=== PATIENT | female | born 1980 | race Caucasian/White ===

== ENCOUNTER 2021-04-04 12:20 | Inpatient (IN) | payer MEDICAID ==
[~2021-04-04] VITALS: Ht 162.6 cm; Wt 89.5 kg
--- NOTE | 2021-04-04 13:35 | NUR ---
CHARGE NURSE MADE AWARE OF PENDING ADMIT TO MOVE PT TO MAIN ER.
[2021-04-04] MEDS ORDERED: piperacillin/tazo 3.375gm/50ml 50 ML IV ONE (13:40)
[2021-04-04] MEDS ORDERED: normal saline 1000ML IV soln IV ONE (13:40)
[2021-04-04] MEDS ORDERED: vancomycin/NS 1 GM ADD-VANTAGE 250 ML IV ONE (13:40)
--- NOTE | 2021-04-04 14:13 | NUR ---
pt is resting quietly on gurney, resp even and unlabored, 1st liter NS infusing w/o, family at bedside
[2021-04-04 14:20] LABS: BASOPHILS # (AUTO) 0.1 X10'3 (0-0.2); BASOPHILS % (AUTO) 0.9 % (0-1); EOSINOPHILS # (AUTO) 0.3 X10'3 (0-0.9); EOSINOPHILS % (AUTO) 3.7 % (0-6); HEMATOCRIT 35.9 % (35.0-45.0); HEMOGLOBIN 11.9 g/dl (12.0-16.0); LYMPHOCYTES # (AUTO) 2.2 X10'3 (1.1-4.8); LYMPHOCYTES % (AUTO) 27.1 % (21-51); MEAN CORPUSCULAR HEMOGLOBIN 29.6 PG (27.0-31.0); MEAN CORPUSCULAR HGB CONC 33.3 g/dL (33.0-36.5); MEAN CORPUSCULAR VOLUME 89.1 FL (78-98); MEAN PLATELET VOLUME 8.1 FL (7.4-10.4); MONOCYTES # (AUTO) 0.5 X10'3 (0-0.9); MONOCYTES % (AUTO) 5.9 % (2-12); NEUTROPHILS # (AUTO) 5.1 X10'3 (1.8-7.7); NEUTROPHILS % (AUTO) 62.4 % (42-75); PLATELET COUNT 377 X10'3 (140-440); RED BLOOD COUNT 4.03 X10'6 (4.20-5.60); RED CELL DISTRIBUTION WIDTH 14.5 % (11.5-14.5); WHITE BLOOD COUNT 8.2 X10'3 (4.5-11.0)
--- NOTE | 2021-04-04 14:24 | NUR ---
PT C/O RT ARM PAIN 10/05, ASKING FOR PAIN MED, Lynn MANNING GAVE VERBAL ORDER FOR MORPHINE 4MG IV X1 NOW
[2021-04-04] MEDS ORDERED: morphine 4 MG/ML inj SYRINge IV ONE (14:25)
[2021-04-04] MEDS ORDERED: iohexol 350MG/ML 100ml bottle IV ONE (14:58)
[2021-04-04 15:08] LABS: ALANINE AMINOTRANSFERASE 9 U/L (12-78); ALBUMIN 3.5 G/DL (3.4-5.0); ALBUMIN/GLOBULIN RATIO 0.7 (1.1-1.5); ALKALINE PHOSPHATASE 105 IU/L (46-116); ANION GAP 11 (8-16); ASPARTATE AMINO TRANSFERASE 11 U/L (10-37); BILIRUBIN,TOTAL 0.1 MG/DL (0.1-1.0); BLOOD UREA NITROGEN 7 MG/DL (7-18); BUN/CREATININE RATIO 7.7 (6.6-38.0); CHLORIDE 107 MMOL/L (99-107); CREATININE 0.91 MG/DL (0.40-0.90); GLUCOSE 121 MG/DL (70-104); POTASSIUM 3.4 MMOL/L (3.5-5.1); SODIUM 144 MMOL/L (135-145); TOTAL CARBON DIOXIDE 25.8 MMOL/L (24-32); TOTAL PROTEIN 8.7 G/DL (6.4-8.2); eGFR 69 ML/MIN
--- NOTE | 2021-04-04 15:50 | NUR ---
PT AMB WITH STEADY GAIT TO ROOM 11 FROM FAST [facility]ACK, PT IS AWARE OF PLAN TO BE ADMITTED TO HOSPITAL, REPORT GIVEN TO JERRY WILLOUGHBY
[2021-04-04] MEDS ORDERED: potassium Cl 20 mEq SR tablet PO PRN ×2 (15:55)
[2021-04-04] MEDS: normal saline 1000ml 1,000 ML IV SCH (15:55)
[2021-04-04] MEDS ORDERED: magnesium 4gm in 100ml NS 100 ML IV PRN (15:55)
[2021-04-04] MEDS ORDERED: mag hydrox/Alum hydrox/simeth 30ml oral suspension PO PRN (15:55)
[2021-04-04] MEDS ORDERED: magnesium hydroxide 30ml (MOM) UD suspension PO PRN (15:55)
[2021-04-04] MEDS ORDERED: acetaminophen 325mg tablet PO PRN ×2 (15:55)
[2021-04-04] MEDS ORDERED: ondansetron/PF 4mg/2ml inj IV PRN (15:55)
[2021-04-04] MEDS ORDERED: ondansetron 4mg rapidly disintigrating tab PO PRN (15:55)
[2021-04-04] MEDS ORDERED: HYDROcodone/acetaminophen 5mg/325mg tablet PO PRN (15:55)
[2021-04-04] MEDS ORDERED: magnesium 2GM in 50ml NS 50 ML IV PRN (15:55)
[2021-04-04] MEDS ORDERED: HYDROmorphone inj. 0.5 MG/0.5 ML DISP.SYRIN IV PRN (15:55)
[2021-04-04] MEDS ORDERED: magnesium Cl slow-release 64mg tablet PO PRN (15:55)
[2021-04-04] MEDS ORDERED: potassium CL 10mEq/100ml bag 100 ML IV PRN (15:55)
[2021-04-04] MEDS: piperacillin/tazo 3.375gm/50ml 50 ML IV SCH (16:00)
[2021-04-04] MEDS ORDERED: AMOX-580 PO (16:22)
[2021-04-04] MEDS ORDERED: CLOP75TA34 PO (16:22)
[2021-04-04] MEDS ORDERED: DULO30CA52 PO (16:22)
[2021-04-04] MEDS ORDERED: CALC667T6 PO (16:22)
[2021-04-04] MEDS ORDERED: GABA-534 PO (16:22)
[2021-04-04 16:31] LABS: APTT 28 SECONDS (22-32)
[2021-04-04 16:33] LABS: MAGNESIUM 1.8 MG/DL (1.5-2.4); POTASSIUM 3.8 MMOL/L (3.5-5.1)
[2021-04-04] MEDS ORDERED: HYDROmorphone inj. 0.5 MG/0.5 ML DISP.SYRIN IV ONE (16:40)
[2021-04-04] MEDS ORDERED: PANT40TA54 PO (16:47)
[2021-04-04] MEDS ORDERED: METO-395 PO (16:47)
[2021-04-04] MEDS ORDERED: enoxaparin 100mg/ml syringe SUBCUT ONE (17:20)
[2021-04-04 17:30] LABS: CLARITY,URINE CLEAR (Clear); COLOR,URINE STRAW (Yellow); GLUCOSE, URINE NEGATIVE (Neg); KETONES,URINE NEGATIVE (Neg); LEUKOCYTE ESTERASE ,URINE NEGATIVE (Neg); NITRITES, URINE NEGATIVE (Neg); OCCULT BLOOD,URINE NEGATIVE (Neg); PROTEIN,URINE NEGATIVE (Neg); UA COLLECTION TYPE STRAIGHT CATH; URINE HCG NEGATIVE (NEG); UROBILINOGEN,URINE 0.2 E.U/dL (0.2-1.0)
[2021-04-04 17:36] LABS: URINE AMPHETAMINE SCREEN NEGATIVE (Neg); URINE BARBITUATE SCREEN NEGATIVE (Neg); URINE BENZODIAZEPINES SCREEN NEGATIVE (Neg); URINE CANNABINOID SCREEN NEGATIVE (Neg); URINE COCAINE SCREEN NEGATIVE (Neg); URINE METHADONE SCREEN NEGATIVE (Neg); URINE OPIATE SCREEN POSITIVE (Neg); URINE PHENCYCLIDINE SCREEN NEGATIVE (Neg)
--- NOTE | 2021-04-04 17:50 | NUR ---
Wound to R FA cleaned with NS. Wet to dry dressing placed on wound. Covered with dry kerlex and wrapped gentley with an ELVA wrap. R arm elevated on a pillow.
[2021-04-04] MEDS ORDERED: PERFLUTREN PROTEIN-A MICROSPHR (Optison) 0.22 MG/ML 3ML VIAL IV ONE (18:00)
[2021-04-04] MEDS ORDERED: aspirin 81mg, enteric-coated 1 TAB TABLET.DR PO ONE (18:00)
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
[2021-04-04 19:13] LABS: BASOPHILS % (AUTO) 0.8 % (0-1); EOSINOPHILS # (AUTO) 0.3 X10'3 (0-0.9); EOSINOPHILS % (AUTO) 4.3 % (0-6); HEMATOCRIT 27.4 % (35.0-45.0); LYMPHOCYTES % (AUTO) 34.3 % (21-51); MEAN CORPUSCULAR HEMOGLOBIN 29.8 PG (27.0-31.0); MEAN CORPUSCULAR HGB CONC 32.7 g/dL (33.0-36.5); MEAN CORPUSCULAR VOLUME 91.1 FL (78-98); MEAN PLATELET VOLUME 7.9 FL (7.4-10.4); MONOCYTES # (AUTO) 0.4 X10'3 (0-0.9); MONOCYTES % (AUTO) 7.2 % (2-12); NEUTROPHILS # (AUTO) 3.1 X10'3 (1.8-7.7); NEUTROPHILS % (AUTO) 53.4 % (42-75); PLATELET COUNT 288 X10'3 (140-440); RED BLOOD COUNT 3.01 X10'6 (4.20-5.60); WHITE BLOOD COUNT 5.9 X10'3 (4.5-11.0)
[2021-04-04] MEDS: K and/or MAG REPLACEMENT MC SCH (20:00)
[2021-04-04] MEDS: docusate sod 100mg capsule PO SCH (20:00)
[2021-04-04 20:03] LABS: ALANINE AMINOTRANSFERASE 8 U/L (12-78); ALBUMIN 2.7 G/DL (3.4-5.0); ALBUMIN/GLOBULIN RATIO 0.6 (1.1-1.5); ALKALINE PHOSPHATASE 87 IU/L (46-116); ANION GAP 10 (8-16); ASPARTATE AMINO TRANSFERASE 11 U/L (10-37); BILIRUBIN,TOTAL 0.1 MG/DL (0.1-1.0); BLOOD UREA NITROGEN 6 MG/DL (7-18); BUN/CREATININE RATIO 7.7 (6.6-38.0); CALCIUM 7.8 MG/DL (8.5-10.1); CHLORIDE 113 MMOL/L (99-107); CREATININE 0.78 MG/DL (0.40-0.90); GLUCOSE 95 MG/DL (70-104); POTASSIUM 3.7 MMOL/L (3.5-5.1); SODIUM 147 MMOL/L (135-145); TOTAL CARBON DIOXIDE 23.7 MMOL/L (24-32); TOTAL PROTEIN 6.9 G/DL (6.4-8.2); eGFR 83 ML/MIN
[2021-04-04] MEDS: HYDROmorphone/PF 0.2 MG/ML SYRINGE IV PRN (20:57)
[2021-04-05] VITALS (7 sets, daily range): BP systolic 111–140; BP diastolic 77–93
[2021-04-05] MEDS: HYDROcodone/acetaminophen 10/325mg tab PO PRN ×3 (00:24→11:17)
[2021-04-05] MEDS: normal saline 1000ml 1,000 ML IV SCH (00:45)
--- NOTE | 2021-04-05 01:00 | NUR ---
patient transfer from ER in a stable condition, oriented to room bed in lower position call light within reach pain medication administered as ordered, she refused blood draw complaint of pain will continue to monitor and report changes
[2021-04-05] MEDS: HYDROmorphone/PF 0.2 MG/ML SYRINGE IV PRN ×4 (01:35→22:04)
[2021-04-05] MEDS: piperacillin/tazo 3.375gm/50ml 50 ML IV SCH ×2 (02:59→07:18)
[2021-04-05] MEDS ORDERED: VANCOMYCIN 1GM/200ML IVPB 200 ML IV SCH (03:00)
--- NOTE | 2021-04-05 06:51 | NUR ---
Problems reprioritized. Patient report given, questions answered & plan of care reviewed with Laura WILLOUGHBY .
--- NOTE | 2021-04-05 06:55 | NUR ---
Patient in room PCU 3015. I have received report from FARTUN BEASLEY, and had the opportunity to ask questions and assume patient care.
--- NOTE | 2021-04-05 06:55 | NUR ---
TODAY'S SURGERY CANCELLED PER DR. PEREZ. PT TAKEN OFF NPO STATUS.
[2021-04-05] MEDS: aspirin 81mg, enteric-coated 1 TAB TABLET.DR PO SCH (07:18)
[2021-04-05] MEDS: docusate sod 100mg capsule PO SCH ×2 (07:18→20:00)
[2021-04-05 07:24] LABS: ALANINE AMINOTRANSFERASE 10 U/L (12-78); ALBUMIN 2.6 G/DL (3.4-5.0); ALBUMIN/GLOBULIN RATIO 0.7 (1.1-1.5); ALKALINE PHOSPHATASE 83 IU/L (46-116); ANION GAP 11 (8-16); ASPARTATE AMINO TRANSFERASE 13 U/L (10-37); BILIRUBIN,TOTAL 0.1 MG/DL (0.1-1.0); BLOOD UREA NITROGEN 5 MG/DL (7-18); BUN/CREATININE RATIO 6.8 (6.6-38.0); CALCIUM 7.9 MG/DL (8.5-10.1); CHLORIDE 112 MMOL/L (99-107); CREATININE 0.74 MG/DL (0.40-0.90); GLUCOSE 81 MG/DL (70-104); SODIUM 144 MMOL/L (135-145); TOTAL CARBON DIOXIDE 21.1 MMOL/L (24-32); TOTAL PROTEIN 6.2 G/DL (6.4-8.2); eGFR 88 ML/MIN
[2021-04-05 07:27] LABS: MAGNESIUM 1.9 MG/DL (1.5-2.4)
--- NOTE | 2021-04-05 07:41 | NUR ---
PAGE SENT PAGER ID: [phone] MESSAGE: [id number], JOY PETERSON, RECENT TROP. 91 , 0600 VS BP 112/80, HR 86. THANK YOU, MIRI Armenta [phone]
[2021-04-05] MEDS: K and/or MAG REPLACEMENT MC SCH ×2 (08:00→20:00)
[2021-04-05 08:28] LABS: BASOPHILS # (AUTO) 0.1 X10'3 (0-0.2); BASOPHILS % (AUTO) 1.2 % (0-1); EOSINOPHILS # (AUTO) 0.2 X10'3 (0-0.9); HEMATOCRIT 30.3 % (35.0-45.0); LYMPHOCYTES # (AUTO) 1.4 X10'3 (1.1-4.8); MEAN CORPUSCULAR HEMOGLOBIN 29.5 PG (27.0-31.0); MEAN CORPUSCULAR VOLUME 89.4 FL (78-98); MEAN PLATELET VOLUME 8.1 FL (7.4-10.4); MONOCYTES # (AUTO) 0.3 X10'3 (0-0.9); MONOCYTES % (AUTO) 6.5 % (2-12); NEUTROPHILS # (AUTO) 3.2 X10'3 (1.8-7.7); NEUTROPHILS % (AUTO) 61.3 % (42-75); PLATELET COUNT 276 X10'3 (140-440); RED BLOOD COUNT 3.39 X10'6 (4.20-5.60); RED CELL DISTRIBUTION WIDTH 14.9 % (11.5-14.5); WHITE BLOOD COUNT 5.2 X10'3 (4.5-11.0)
--- NOTE | 2021-04-05 10:45 | NUR ---
TELE D/C'D PER DR. HI. MEDICAL RECORDS REQUEST FORM FILLED OUT FOR [facility] IN [place], [place]. ORDERS PLACED FOR WOUND TEAM CONSULT. ASSOCIATE PROFESSOR OF LAW NOTIFIED OF PT'S POSSIBLE D/C 04/06, AND REQUESTED OUT PT WOUND CARE.
[2021-04-05] MEDS ORDERED: HYDROcodone/acetaminophen 10/325mg tab PO PRN (10:55)
--- NOTE | 2021-04-05 11:54 | NUR ---
Initial: Pt admitted s/p right forearm fasciotomies for compartment syndrome in 01/2021 with continued open wounds, now with infection per EMR. No surgical intervention at this time per RN, WOC assessment pending. Wound likely significant given non healing status of fasciotomy. Pt could benefit from Dominic smoothlorin BID to assist w/ wound healing. Currently on Regular diet w/ ~85% intake of first meal. Pending BM, receiving routine colace. Will continue to monitor and make recommendations as appropriate. Recs: 1. Continue Regular diet as tolerated 2. Dominic Rice BIDBD; pending MD verification 3. Bowel care per rx 4. Scaled wt Addendum: 04/05/21 at [address] Amended: Links added.
--- NOTE | 2021-04-05 13:07 | NUR ---
PAGE SENT PAGER ID: [phone] MESSAGE: [id number], JOY PETERSON, PT'S PIV IS BARELY HANGING ON. DIFFICULT STICK AND RELUCTANT TO BE STUCK. MAY SHE HAVE PO ABX? THANK YOU. MIRI [phone]
--- NOTE | 2021-04-05 14:25 | NUR ---
PAGE SENT PAGER ID: [phone] MESSAGE: [id number], JOY PETERSON, PAPERWORK FROM [facility] IS HERE. PLACED IN PT'S CHART. THANK YOU, MIRI Armenta [phone]
--- NOTE | 2021-04-05 14:47 | NUR ---
WOUND INFECTION EDUCATION PROVIDED BY WOUND CARE 1. Patient instructed to call their primary doctor, or go the ED immediately if any of the following symptoms occur: * Increased pain in wound * Increase in drainage from the wound * Redness in the skin surrounding the wound * Warmth in the skin surrounding the wound * Bleeding from the wound * Temperature of 101 or greater 2. If any of these occur while in the hospital tell a nurse immediately. PRESSURE ULCER EDUCATION: DEFINITION: A pressure ulcer is an area of skin that breaks down when you stay in one position too long. The constant pressure against the skin reduces the blood flow to that area and the affected tissue dies. CAUSES: "Being bedridden or in a wheelchair "Fragile skin "Having a chronic condition, such as diabetes or vascular disease "Inability to move certain parts of your body without assistance "Older age "Incontinence of urine or stool SYMPTOMS: "A reddened area that DOES NOT turn white when pressed on - this can be the beginning of a pressure ulcer "A blister, deep sore or a crater - these can be advanced pressure ulcers FIRST AID: "Relieve the pressure on this area "Keep the area clean and dry "Call your primary doctor if you see any of the above symptoms "DO NOT massage the area "DO NOT use a donut shaped or ring shaped pillow- these actually interfere with the blood flow and cause complications PREVENTION: "Check for pressure ulcers everyday "Change position at least every two hours to relieve pressure "Use items that help relieve pressure- pillows, sheepskin, foam padding, and powders. "Keep skin clean and dry "Eat healthy well balanced meals "Exercise daily IF YOU SEE ANY OF THESE SYMPTOMS WHILE IN THE HOSPITAL - TELL YOUR NURSE IMMEDIATELY. IF YOU SEE ANY OF THESE SYMPTOMS WHILE AT HOME OR HAVE ANY QUESTIONS OR CONCERNS ABOUT PRESSURE ULCERS - CALL YOUR PRIMARY DOCTOR IMMEDIATELY. Addendum: 04/05/21 at 1448 by April Rosales RN Amended: Links added.
[2021-04-05] MEDS: VANCOmycin 1250MG/NS 250ml Bag 250 ML IV SCH (17:05)
--- NOTE | 2021-04-05 18:22 | NUR ---
Problems reprioritized. Patient report given, questions answered & plan of care reviewed with FARTUN BALDWIN.
--- NOTE | 2021-04-05 18:23 | NUR ---
Patient in room PCU 3015. I have received report from FARTUN Sanchez and had the opportunity to ask questions and assume patient care.
--- NOTE | 2021-04-05 18:51 | NUR ---
AFTERNOON ABX LATE D/T NO IV ACCESS.
[2021-04-06] MEDS: piperacillin/tazo 3.375gm/50ml 50 ML IV SCH ×2 (00:26→07:37)
[2021-04-06] MEDS: HYDROmorphone/PF 0.2 MG/ML SYRINGE IV PRN ×2 (02:58→07:40)
[2021-04-06 03:00] VITALS: BP 144/91
[2021-04-06] MEDS: VANCOmycin 1250MG/NS 250ml Bag 250 ML IV SCH (04:39)
--- NOTE | 2021-04-06 05:53 | NUR ---
Patient refused lab to be drawn by labor relations director this morning.
[2021-04-06 06:00] VITALS: BP 131/97
--- NOTE | 2021-04-06 06:32 | NUR ---
Problems reprioritized. Patient report given, questions answered & plan of care reviewed with FARTUN Song.
[2021-04-06] MEDS: docusate sod 100mg capsule PO SCH (07:38)
[2021-04-06] MEDS: aspirin 81mg, enteric-coated 1 TAB TABLET.DR PO SCH (07:38)
[2021-04-06] MEDS: K and/or MAG REPLACEMENT MC SCH (08:00)
--- NOTE | 2021-04-06 10:39 | NUR ---
Notified about Patient [id number] Trend, Refused her morning labs and states she wants to go home.
[2021-04-06] MEDS ORDERED: OXYC-145 PO (10:53)
[2021-04-06] MEDS ORDERED: CLOP75TA34 PO (10:53)
--- NOTE | 2021-04-06 12:29 | NUR ---
Patient discharged from facility. Discharge instruction and education provided to patient. Patient verbalized understanding. Provided instruction to follow up with wound care nurse and PCP. Patient verbalized understanding. IV discontinue. Patient left with home medication. Patient left with all belongings
[2021-04-07] MEDS ORDERED: VANCOMYCIN LEVEL IV ONE (02:30)
== END 2021-04-06 12:30 | disposition home or self-care (01) | DRG 721 ==
LOC: ER 12:20 → ED HOLD 15:54 → UNDOADMIN 15:54 → ED HOLD 18:01 → PCU 3S 23:29 → ED HOLD 23:29 → MED 3N 04-05 19:53
PROVIDERS: ADMIT Family Medicine; ATTEND Family Medicine
PROC: BP2T1ZZ Computerized Tomography (CT Scan) of Right Upper Extremity using Low Osmolar Contrast (ICD-10-PCS; principal; 2021-04-04)
DX: T81.42XA Infection following a procedure, deep incisional surgical site, initial encounter (principal); N17.9 Acute kidney failure, unspecified; E87.0 Hyperosmolality and hypernatremia; E87.6 Hypokalemia; Y83.8 Other surgical procedures as the cause of abnormal reaction of the patient, or of later complication, without mention of misadventure at the time of the procedure; Y92.89 Other specified places as the place of occurrence of the external cause; L02.511 Cutaneous abscess of right hand; L03.113 Cellulitis of right upper limb; F43.10 Post-traumatic stress disorder, unspecified; Z20.822 Contact with and (suspected) exposure to COVID-19; B96.89 Other specified bacterial agents as the cause of diseases classified elsewhere; G62.9 Polyneuropathy, unspecified; N18.9 Chronic kidney disease, unspecified; F17.210 Nicotine dependence, cigarettes, uncomplicated; Z88.2 Allergy status to sulfonamides; Z79.899 Other long term (current) drug therapy; Z79.02 Long term (current) use of antithrombotics/antiplatelets; Z90.49 Acquired absence of other specified parts of digestive tract
CPT/HCPCS: 36415; 71045; 73201; 80053; 80305; 81003; 81025; 83605; 83735; 83880; 84132; 84145; 84484; 85025; 85610; 85730; 87040; 87070; 87077; 87081; 87186; 87635; 93005; 93306; 96365; 99285; G0378; J1170; J1650; J2270; J2543; J3370; J7030; Q9967